=== PATIENT | female | born 1960 | race Two or more races ===

== ENCOUNTER 2017-08-24 17:24 | Emergency (ER) | payer OTHER ==
[2017-08-24] MEDS: KETOROLAC 60 MG INJ IM (21:09)
[2017-08-24 21:38] LABS: URINE BLOOD (Dip) POC 2+ (NEGATIVE); URINE GLUCOSE (Dip) POC Negative (NEGATIVE); URINE KETONES (Dip) POC Negative (NEGATIVE); URINE LEUKOCYTE EST (Dip) POC Negative (NEGATIVE); URINE NITRITE (Dip) POC Negative (NEGATIVE); URINE TOTAL PROTEIN POC Negative (NEGATIVE)
[2017-08-24 21:38] LABS: URINE PH (Dip) POC 5.5 (5.0-8.5)
== END 2017-08-24 22:13 | disposition home or self-care (01) ==
LOC: E/R 17:24
DX: M62.830 Muscle spasm of back (principal)
CPT/HCPCS: 81003; 96372; 99284-25